=== PATIENT | male | born 1985 | race Two or more races ===

== ENCOUNTER 2025-08-15 21:09 | Emergency (ER) | payer SELFPAY | END 2025-08-16 00:39 | disposition left against medical advice (07) | LOC: ER 21:11 | DX: Z53.21 Procedure and treatment not carried out due to patient leaving prior to being seen by health care provider (principal) ==

== ENCOUNTER 2025-08-21 14:23 | Emergency (ER) | payer MEDICAID ==
[~2025-08-21] VITALS: Ht 177.8 cm; Wt 72.6 kg
[2025-08-21] MEDS ORDERED: ASPIRIN 325 MG TABLET ONE (16:31)
[2025-08-21 17:07] LABS: CALCIUM, SERUM 8.6 mg/dL (8.5-10.1); CREATININE 1.1 mg/dL (0.6-1.3); SODIUM SERUM 140.0 mmol/L (136-145); UREA NITROGEN, BLOOD 9.0 mg/dL (7-18)
[2025-08-21 17:16] LABS: ASPARTATE AMINOTRANSFERASE 35.0 U/L (15-37); TOTAL PROTEIN, SERUM 7.3 g/dL (6.4-8.2)
[2025-08-21 17:33] LABS: PLATELET COUNT (AUTO) 458 K/uL (150-450); RED BLOOD CELL COUNT(AUTO) 5.09 MIL/uL (4.5-6.0); RED CELL DISTRIBUTION WIDTH 14.2 % (11.5-15.0); WHITE BLOOD COUNT (AUTO) 6.2 K/uL (4.3-11.0)
[2025-08-21 17:37] LABS: APPEARANCE,URINE CLEAR (CLEAR); BLOOD, URINE NEGATIVE Ery/uL (NEGATIVE); LEUKOCYTE ESTERASE ,URINE NEGATIVE (NEGATIVE); NITRITE, URINE NEGATIVE (NEGATIVE); UGLUCOSE NEGATIVE (NEGATIVE)
[2025-08-21] MEDS: IV NS 0.9% 1,000 ML BAG IV ONE (17:43)
[2025-08-21 17:46] LABS: ADD URINE CULTURE NO; SQUAMOUS EPITHELIAL CELL,UR None Seen /HPF (None Seen)
[2025-08-21] MEDS ORDERED: LOPE2TAB25 PO (18:20)
[2025-08-21 18:39] VITALS: BP 125/71; TEMP 99.5; O2SAT 100
== END 2025-08-21 19:29 | disposition home or self-care (01) ==
LOC: ER 14:25
DX: R19.7 Diarrhea, unspecified (principal); Z20.822 Contact with and (suspected) exposure to COVID-19
CPT/HCPCS: 99284; 74176; 96360; 87426; 87804 ×2; 85025; 80048; 83690; 80076; 81001; 36415; J7030